=== PATIENT | male | born 1975 | race Caucasian/White ===

== ENCOUNTER 2016-11-25 20:39 | Emergency (ER) | payer SELFPAY ==
[2016-11-25] MEDS ORDERED: Ondansetron 4 MG/2 ML SDV ONE (20:42)
[2016-11-25] MEDS ORDERED: Ondansetron 4 MG/2 ML SDV IVPUSH ONE (20:44)
[2016-11-25] MEDS ORDERED: Sodium Chloride 0.9% 1,000 ML IV ONE ×2 (20:45→22:15)
[2016-11-25] MEDS ORDERED: Famotidine 20 MG/2 ML SDV IVPUSH ONE (20:45)
[2016-11-25] MEDS ORDERED: Sodium Chloride 0.9% 10 ML Syringe FLUSH PRN (20:45)
[2016-11-25] MEDS ORDERED: LORazepam 2 MG/ML MDV IVPUSH ONE (20:45)
[2016-11-25] MEDS ORDERED: Sodium Chloride 0.9% 2.5 ML Syringe FLUSH PRN (20:45)
--- NOTE | 2016-11-25 20:57 | EDM.PDOC ---
ED HPI GENERAL MEDICAL PROBLEM - General Chief Complaint: Behavioral/Psych Stated Complaint: AMBULANCE Time Seen by Provider: 11/25/16 20:44 - History of Present Illness INITIAL COMMENTS - FREE TEXT/NARRATIVE: HISTORY AND PHYSICAL: History of present illness: The patient is a 41-year-old male with a psychiatric history that started according to his testimony 2 or so years ago when he started having psychosis and hallucinations and he follows with a psychiatrist/counselor in [place]. He locally saw a provider at [facility] and got medication refills the end of October and presents with EMS and police after drinking beer all day long and causing a public nuisance and tonight ingesting a number of his prescription medications with intent to harm himself. The patient repeatedly says in the ED that he wants to . It seems to relate to his girlfriend who is out of town but he will not give me more information about that. He does drink alcohol 3 regularly at least every 2-3 nights and is mostly beer. He denies any drug use and smoking and has no other significant medical problems. He states that he took approximately 12 tablets of his Zyprexa 15 mg, 15 tablets of his Effexor 150 mg, and 5 tablets of his 75 mg defects are approximately 40-60 minutes ago. He's been having dry heaves since arrival in the ED and plus in route with EMS. Patient states he has never had a suicide attempt or taken an overdose in the past. . He currently has no complaints of chest pain shortness of breath abdominal pain but has some nausea and feels somewhat dizzy. Review of systems: As per history of present illness and below otherwise all systems reviewed and negative. Past medical history: As per history of present illness and as reviewed below otherwise noncontributory. Surgical history: As per history of present illness and as reviewed below otherwise noncontributory. Social history: No reported history of drug or alcohol abuse. Family history: As per history of present illness and as reviewed below otherwise noncontributory. Physical exam: General: Well-developed well-nourished male who is nontoxic and very active in the ED moving all about the bed climbing out of the bed and being very exaggerated with his evaluation. He has a slurred voice alcohol smell on his breath. HEENT: Atraumatic with any new injuries but there are old scab seen on his nasal bridge and underneath his right eye without any palpable bony deformities , sclera are injected,, normocephalic, pupils reactive, negative for conjunctival pallor or scleral icterus, mucous membranes moist, throat clear, neck supple, nontender, trachea midline. Lungs: Clear to auscultation, breath sounds equal bilaterally, chest nontender. Heart: S1S2, regular rhythm but tachycardic rate, negative for clicks, rubs, or JVD. Abdomen: Soft, nondistended, nontender. Negative for masses or hepatosplenomegaly. Negative for costovertebral tenderness. Pelvis: Stable nontender. Genitourinary: Deferred. Rectal: Deferred. Extremities: Atraumatic, negative for cords or calf pain. Neurovascular unremarkable. Full range of motion without defects or deficits Neuro: Awake, alert, oriented. Cranial nerves II through XII unremarkable. Cerebellum unremarkable. Motor and sensory unremarkable throughout. Exam nonfocal. Skin: Normal turgor no evidence of any rashes or lesions Diagnostics: EKG CBC CMP alcohol Tylenol and aspirin levels TSH UA UDS magnesium Therapeutics: IV O2 monitor IV fluids Zofran Pepcid Ativan Poison control was contacted about this case at [id number]; due to the Effexor they recommend seizure precautions and due to possible QT prolongation they recommend cardiac monitoring for a minimum of 18 hours. We will continue to follow lab results and plan for disposition with either transfer or admission here if no psychiatric beds are available. 2103: Patient is climbing out of the bed saying that he is hearing his fer talking to him and telling him things and he is hearing was of other people. We will give a dose of Haldol. Poison control was notified of this and cautioned against use of Geodon or more Zyprexa due to Qt prolongation. 2139: Case was discussed with our hospitalist Dr. Ortiz who does not feel comfortable admitting this patient here for medical observation until he is cleared for psychiatric care do to his presenting symptoms and the possible need for cardiology or more intensive care than we can provide. 2203: Case was discussed with Dr. Odom in the ER at [facility] accepts the patient for transfer. He is aware that we have a UA and UDS pending which we will obtain and send those results when available. Patient has been sleeping since receiving the medication. Vital signs are stable. Critical care time excluding procedures: 31min Impression: Intentional overdose of Zyprexa or any defects or come alcohol use abuse, suicidal ideation and depression/ acute psychosis Definitive disposition and diagnosis as appropriate pending reevaluation and review of above. - Related Data Allergies Allergy/AdvReac Type Severity Reaction Status Date / Time No Known Allergies Allergy Verified 11/25/16 20:46 Home Meds: Home Meds OLANZapine [Olanzapine] 1 tab PO DAILY 11/25/16 [History] Venlafaxine [Effexor] 1 tab PO DAILY 11/25/16 [History] Venlafaxine [Venlafaxine HCl ER] 1 tab PO DAILY 11/25/16 [History] Social & Family History - Tobacco Use Smoking Status *Q: Unknown Ever Smoked Second Hand Smoke Exposure: No - Alcohol Use Days Per Week of Alcohol Use: 1 Number of Drinks Per Day: 1 Total Drinks Per Week: 1 - Recreational Drug Use Recreational Drug Use: No ED ROS GENERAL - Review of Systems Review Of Systems: ROS reveals no pertinent complaints other than HPI. ED EXAM, GENERAL - Physical Exam Exam: See Below (see Dictation) Course - Vital Signs Last Recorded V/S: Last Vital Signs Temp 37.1 C 11/25/16 20:40 Pulse 103 H 11/25/16 20:40 Resp 18 11/25/16 20:40 BP 128/82 11/25/16 20:40 Pulse Ox 96 11/25/16 20:40 - Orders/Labs/Meds Orders: Active Orders 24 hr Category Date Time Status Blood Glucose Check, Bedside [RC] ONETIME Care 11/25/16 20:44 Inactive Cardiac Monitoring [RC] . DIRECTED Care 11/25/16 20:44 Active EKG Documentation Completion [RC] STAT Care 11/25/16 20:44 Active Oxygen Therapy, ED [RC] ASDIRECTED Care 11/25/16 20:44 Active Pulse Oximetry [RC] ASDIRECTED Care 11/25/16 20:44 Active DRUG SCREEN, URINE [URCHEM] Stat Lab 11/25/16 20:45 Uncollected UA W/MICROSCOPIC [URIN] Stat Lab 11/25/16 20:45 Uncollected Sodium Chloride 0.9% [Saline Flush] Med 11/25/16 20:45 Active 10 ml FLUSH ASDIRECTED PRN Sodium Chloride 0.9% [Saline Flush] Med 11/25/16 20:45 Active 2.5 ml FLUSH ASDIRECTED PRN Saline Lock Insert [OM.PC] Stat Oth 11/25/16 20:44 Ordered Medication Orders Sodium Chloride (Saline Flush) 10 ml FLUSH ASDIRECTED PRN PRN Reason: Keep Vein Open Sodium Chloride (Saline Flush) 2.5 ml FLUSH ASDIRECTED PRN PRN Reason: Keep Vein Open Labs: Laboratory Tests 11/25/16 11/25/16 Range/Units 20:54 20:54 WBC 7.00 (4.0-11.0) K/uL RBC 4.63 (4.50-5.90) M/uL Hgb 14.5 (13.0-17.0) g/dL Hct 41.5 (38.0-50.0) % MCV 89.6 (80.0-98.0) fL MCH 31.3 (27.0-32.0) pg MCHC 34.9 (31.0-37.0) g/dL RDW Std Deviation 44.6 (28.0-62.0) fl RDW Coeff of [place] 14 (11.0-15.0) % Plt Count 192 (150-400) K/uL MPV 10.30 (7.40-12.00) fL Neut % (Auto) 53.4 (48.0-80.0) % Lymph % (Auto) 39.0 (16.0-40.0) % [place] % (Auto) 6.9 (0.0-15.0) % Eos % (Auto) 0.6 (0.0-7.0) % Baso % (Auto) 0.1 (0.0-1.5) % Neut # (Auto) 3.7 (1.4-5.7) K/uL Lymph # (Auto) 2.7 H (0.6-2.4) K/uL [place] # (Auto) 0.5 (0.0-0.8) K/uL Eos # (Auto) 0.0 (0.0-0.7) K/uL Baso # (Auto) 0.0 (0.0-0.1) K/uL Nucleated RBC % 0.0 /100WBC Nucleated RBCs # 0 K/uL Sodium 140 (136-146) mmol/L Potassium 4.3 (3.5-5.1) mmol/L Chloride 110 (98-110) mmol/L Carbon Dioxide 18 L (21-31) mmol/L BUN 13 (6.0-23.0) mg/dL Creatinine 1.2 (0.6-1.5) mg/dL Est Cr Clr Drug Dosing 77.58 mL/min Estimated GFR (MDRD) > 60.0 ml/min Glucose 87 (60-110) mg/dL Calcium 9.0 (8.8-10.8) mg/dL Magnesium 2.1 (1.5-2.3) mEq/L Total Bilirubin 0.3 (0.1-1.5) mg/dL AST 23 (5-40) IU/L ALT 21 (8-54) IU/L Alkaline Phosphatase 89 (40-150) Total Protein 7.6 (6.0-8.0) g/dL Albumin 4.5 (3.5-5.0) g/dL Globulin 3.1 (2.0-3.5) g/dL Albumin/Globulin Ratio 1.5 (1.3-2.8) TSH 3rd Generation 2.00 (0.47-5.0) uIU/mL Salicylates < 5.0 (0-20) mg/dL Acetaminophen < 3.0 ug/mL Ethyl Alcohol 323.5 mg/dL Meds: Medications Generic Name Dose Route Start Last Admin Trade Name Freq PRN Reason Stop Dose Admin Sodium Chloride 10 ml 11/25/16 20:45 Saline Flush FLUSH ASDIRECTED PRN Keep Vein Open Sodium Chloride 2.5 ml 11/25/16 20:45 Saline Flush FLUSH ASDIRECTED PRN Keep Vein Open Discontinued Medications Generic Name Dose Route Start Last Admin Trade Name Freq PRN Reason Stop Dose Admin Famotidine 20 mg 11/25/16 20:45 11/25/16 21:07 Pepcid IVPUSH 11/25/16 20:46 20 mg ONETIME ONE Administration Haloperidol Lactate 10 mg 11/25/16 21:09 11/25/16 21:18 Haldol IM 11/25/16 21:10 Not Given ONETIME ONE Haloperidol Lactate Confirm 11/25/16 21:12 11/25/16 21:17 Haldol Administered 11/25/16 21:13 Not Given Dose 10 mg .ROUTE .STK-MED ONE Sodium Chloride 1,000 mls @ 999 mls/hr 11/25/16 20:45 11/25/16 21:10 Normal Saline IV 11/25/16 21:45 999 mls/hr STAT ONE Administration Olanzapine 10 mg/ Sterile 2.1 mls @ 999 mls/hr 11/25/16 21:04 11/25/16 21:17 Water IM 11/25/16 21:05 Not Given ONETIME ONE Ziprasidone 20 mg/ Sterile 1.2 mls @ 1 mls/sec 11/25/16 21:05 Water IM 11/25/16 21:06 ONETIME ONE Lorazepam 1 mg 11/25/16 20:45 11/25/16 21:06 Ativan IVPUSH 11/25/16 20:46 1 mg ONETIME ONE Administration Ondansetron HCl 4 mg 11/25/16 20:44 11/25/16 21:12 Zofran IVPUSH 11/25/16 20:45 4 mg ONETIME ONE Administration Ondansetron HCl Confirm 11/25/16 20:42 11/25/16 21:17 Zofran Administered 11/25/16 20:43 Not Given Dose 4 mg .ROUTE .STK-MED ONE Ziprasidone Confirm 11/25/16 21:06 11/25/16 21:15 Geodon Administered 11/25/16 21:07 Not Given Dose 20 mg .ROUTE .STK-MED ONE Departure - Departure Time of Disposition: 22:12 Disposition: DC/Tfer to Acute Hospital 02 Condition: good Clinical Impression: Suicidal ideation Alcohol intoxication Qualifiers: Complication of substance-induced condition: with unspecified complication Qualified Code(s): F10.129 - Alcohol abuse with intoxication, unspecified Intentional drug overdose Qualifiers: Encounter type: initial encounter Qualified Code(s): T50.902A - Poisoning by unspecified drugs, medicaments and biological substances, intentional self-harm , initial encounter Psychosis Qualifiers: Psychosis type: unspecified psychosis type Qualified Code(s): F29 - Unspecified psychosis not due to a substance or known physiological condition Forms: ED Department Discharge - My Orders Last 24 Hours: My Active Orders 11/25/16 20:44 Blood Glucose Check, Bedside [RC] ONETIME Cardiac Monitoring [RC] . DIRECTED EKG Documentation Completion [RC] STAT Oxygen Therapy, ED [RC] ASDIRECTED Pulse Oximetry [RC] ASDIRECTED Saline Lock Insert [OM.PC] Stat 11/25/16 20:45 DRUG SCREEN, URINE [URCHEM] Stat UA W/MICROSCOPIC [URIN] Stat Sodium Chloride 0.9% [Saline Flush] 10 ml FLUSH ASDIRECTED PRN Sodium Chloride 0.9% [Saline Flush] 2.5 ml FLUSH ASDIRECTED PRN - Assessment/Plan Last 24 Hours: My Active Orders 11/25/16 20:44 Blood Glucose Check, Bedside [RC] ONETIME Cardiac Monitoring [RC] . DIRECTED EKG Documentation Completion [RC] STAT Oxygen Therapy, ED [RC] ASDIRECTED Pulse Oximetry [RC] ASDIRECTED Saline Lock Insert [OM.PC] Stat 11/25/16 20:45 DRUG SCREEN, URINE [URCHEM] Stat UA W/MICROSCOPIC [URIN] Stat Sodium Chloride 0.9% [Saline Flush] 10 ml FLUSH ASDIRECTED PRN Sodium Chloride 0.9% [Saline Flush] 2.5 ml FLUSH ASDIRECTED PRN
[2016-11-25] MEDS ORDERED: OLANZapine 10 MG in Water For Injection, Sterile 2.1 ML IM ONE (21:04)
[2016-11-25] MEDS ORDERED: Ziprasidone Mesylate 20 MG in Water For Injection, Sterile 1.2 ML IM ONE (21:05)
[2016-11-25] MEDS ORDERED: Ziprasidone Mesylate 20 MG Vial ONE (21:06)
[2016-11-25] MEDS ORDERED: Haloperidol Lactate 5 MG/ML SDV IM ONE (21:09)
[2016-11-25] MEDS ORDERED: Haloperidol Lactate 5 MG/ML SDV ONE (21:12)
[2016-11-25 21:25] LABS: CHLORIDE,CL 110 mmol/L (98-110); SODIUM,NA 140 mmol/L (136-146)
[2016-11-25 21:50] LABS: ACETAMINOPHEN < 3.0 ug/mL
[2016-11-25] MEDS ORDERED: Thiamine 100 MG in Sodium Chloride 0.9% 100 ML IV ONE (22:15)
[2016-11-26 03:38] VITALS: BP 100/61
== END 2016-11-25 22:55 ==
LOC: MW.ED 20:39
DX: T43.592A Poisoning by other antipsychotics and neuroleptics, intentional self-harm, initial encounter (principal); T43.212A Poisoning by selective serotonin and norepinephrine reuptake inhibitors, intentional self-harm, initial encounter; R45.851 Suicidal ideations; F10.129 Alcohol abuse with intoxication, unspecified; F29 Unspecified psychosis not due to a substance or known physiological condition; Z79.899 Other long term (current) drug therapy; Y90.8 Blood alcohol level of 240 mg/100 ml or more
CPT/HCPCS: 36415; 80053; 80305; 81001; 83735; 84443; 85025; 93005; 96361; 96374; 96375; 99285; G0480; J2060; J3411; J7030; J7040; 99291; J2405

== ENCOUNTER 2017-05-19 19:50 | Emergency (ER) | payer SELFPAY | END 2017-05-19 19:53 | disposition left against medical advice (07) | LOC: MW.ED 19:50 | DX: Z53.21 Procedure and treatment not carried out due to patient leaving prior to being seen by health care provider (principal) ==

== ENCOUNTER 2022-11-08 13:30 | Emergency (ER) | payer MEDICAID | END 2022-11-08 14:26 | disposition left against medical advice (07) | LOC: MW.ED 13:30 | DX: Z53.21 Procedure and treatment not carried out due to patient leaving prior to being seen by health care provider (principal) ==

== ENCOUNTER 2022-11-12 08:33 | Emergency (ER) | payer MEDICAID ==
[2022-11-12 08:48] VITALS: BP 131/87; PULSE 88
[2022-11-12] MEDS ORDERED: Morphine 4 MG/ML Syringe IVPUSH ONE (09:22)
[2022-11-12] MEDS ORDERED: Lactated Ringers 1,000 ML IV ONE (09:23)
[2022-11-12 09:38] LABS: APPEARANCE,URINE CLEAR; BILIRUBIN,URINE NEGATIVE (NEGATIVE); COLOR,URINE DARK YELLOW; GLUCOSE,URINE NEGATIVE (NEGATIVE); KETONES,URINE NEGATIVE (NEGATIVE); LEUKOCYTE ESTERASE,URINE NEGATIVE (NEGATIVE); NITRITE,URINE NEGATIVE (NEGATIVE); OCCULT BLOOD,URINE NEGATIVE (NEGATIVE); PROTEIN,URINE NEGATIVE (NEGATIVE); UROBILINOGEN,URINE 0.2 EU/dL (<2.0)
[2022-11-12 10:01] LABS: HEMATOCRIT 43.5 % (38.0-50.0); HEMOGLOBIN 14.6 g/dL (13.0-17.0); MEAN CORPUSCULAR HEMOGLOBIN 30.8 pg (27.0-32.0); MEAN CORPUSCULAR HGB CONC 33.6 g/dL (31.0-37.0); MEAN CORPUSCULAR VOLUME 91.8 fL (80.0-98.0); MEAN PLATELET VOLUME 10.3 fL (7.40-12.00); RED BLOOD CELL COUNT 4.74 M/uL (4.50-5.90); WHITE BLOOD CELL COUNT,WBC 5.52 K/uL (4.0-11.0)
[2022-11-12] MEDS ORDERED: Lidocaine 5% 700 MG Patch TOP ONE (10:01)
[2022-11-12] MEDS ORDERED: Acetaminophen 325 MG Tab PO ONE (10:01)
[2022-11-12 10:20] LABS: ALBUMIN 3.8 g/dL (3.4-5.0); BILIRUBIN TOTAL 0.3 mg/dL (0.2-1.0); CALCIUM 9.4 mg/dL (8.5-10.1); EST CRCL DRUG DOSING (CG) 87.4 mL/min; POTASSIUM,K 4.9 mmol/L (3.5-5.1); PROTEIN TOTAL,TP 7.7 g/dL (6.4-8.2)
[2022-11-12] MEDS ORDERED: Iopamidol 755 MG/ML 500 ML Multipack Bottle IVPUSH ONE (10:56)
[2022-11-12] MEDS ORDERED: oxyCODONE 5 MG Tab PO ONE (12:01)
[2022-11-12] MEDS ORDERED: Ibuprofen 400 MG Tab PO ONE (12:01)
== END 2022-11-12 12:41 | disposition home or self-care (01) ==
LOC: MW.ED 08:33
DX: S22.32XA Fracture of one rib, left side, initial encounter for closed fracture (principal); F17.210 Nicotine dependence, cigarettes, uncomplicated; W00.0XXA Fall on same level due to ice and snow, initial encounter; Y93.01 Activity, walking, marching and hiking
CPT/HCPCS: 36415; 71260; 74177; 80053; 81003; 85027; 96374; 99284; A9270; J2270; J7120; Q9967